=== PATIENT | female | born 1980 | race Caucasian/White ===

== ENCOUNTER 2019-04-29 04:06 | Emergency (ER) | payer OTHER ==
[~2019-04-29] VITALS: Ht 167.6 cm; Wt 90.9 kg
[2019-04-29 11:15] VITALS: BP 121/70
[2019-04-29] MEDS ORDERED: CefTRIAXone SODIUM 1 GM/VIAL IM ONE (11:15)
[2019-04-29] MEDS ORDERED: MetroNIDAZOLE 250 MG TABLET PO ONE (11:15)
[2019-04-29] MEDS ORDERED: AZITHROMYCIN 250 MG TABLET PO ONE (11:15)
== END 2019-04-29 11:54 | disposition home or self-care (01) ==
LOC: EMS 04:10
DX: N76.0 Acute vaginitis (principal); Z90.710 Acquired absence of both cervix and uterus
CPT/HCPCS: 87210; 87491; 87591; 96372; 99283; J0696

== ENCOUNTER 2023-07-17 09:04 | Emergency (ER) | payer OTHER ==
[~2023-07-17] VITALS: Ht 165.1 cm; Wt 90.9 kg
[2023-07-17 09:31] VITALS: TEMP 98.3
[2023-07-17] MEDS ORDERED: HYDROCODONE/ACETAMINOPHEN 5-325 MG TABLET PO ONE (12:45)
[2023-07-17] MEDS ORDERED: ACETAMINOPHEN 325 MG TABLET PO ONE (12:45)
[2023-07-17] MEDS ORDERED: OXYC-38 PO (13:09)
[2023-07-17 13:38] VITALS: BP 119/82; PULSE 80; RESP 18
== END 2023-07-17 13:39 | disposition home or self-care (01) ==
LOC: EMS 09:04
DX: M25.561 Pain in right knee (principal); Z90.710 Acquired absence of both cervix and uterus
CPT/HCPCS: 29505; 99283